=== PATIENT | male | born 1945 | race Hispanic/Latino ===

== ENCOUNTER → 2019-04-14 | Outpatient (CLI) | payer OTHER | END | disposition home or self-care (01) | LOC: SHCH 10:08 | PROVIDERS: ATTEND Internal Medicine Cardiovascular Disease | DX: I08.0 Rheumatic disorders of both mitral and aortic valves (principal); I11.9 Hypertensive heart disease without heart failure; I65.23 Occlusion and stenosis of bilateral carotid arteries; I25.10 Atherosclerotic heart disease of native coronary artery without angina pectoris | CPT/HCPCS: 93306; 93880 ==

== ENCOUNTER → 2020-04-10 | Outpatient (CLI) | payer OTHER | END | disposition home or self-care (01) | LOC: SHCH 10:00 | PROVIDERS: ATTEND Internal Medicine Cardiovascular Disease | DX: I08.0 Rheumatic disorders of both mitral and aortic valves (principal) | CPT/HCPCS: 93306 ==

== ENCOUNTER → 2023-09-19 | Outpatient (CLI) | payer OTHER | END | disposition home or self-care (01) | LOC: SHCH 12:45 | PROVIDERS: ATTEND Internal Medicine Cardiovascular Disease | DX: I08.0 Rheumatic disorders of both mitral and aortic valves (principal) | CPT/HCPCS: 93306 ==

== ENCOUNTER → 2023-10-14 | Outpatient (CLI) | payer OTHER | END | disposition home or self-care (01) | LOC: SHCH 12:28 | PROVIDERS: ATTEND Internal Medicine Cardiovascular Disease | DX: I65.23 Occlusion and stenosis of bilateral carotid arteries (principal); I35.0 Nonrheumatic aortic (valve) stenosis | CPT/HCPCS: 93880 ==

== ENCOUNTER 2023-11-20 06:17 | Day surgery (SDC) | payer OTHER ==
[2023-11-18 12:03] LABS: BASOPHILS % (AUTO) 0.8 % (0.0-5.0); EOSINOPHILS # (AUTO) 0.35 K/uL (0.00-0.70); EOSINOPHILS % (AUTO) 2.8 % (0.0-8.0); HEMATOCRIT 41.4 % (42-54); IMMATURE GRANULOCYTE ABSOLUTE 0.06 K/uL (0-1); LYMPHOCYTES # (AUTO) 1.6 K/uL (1.0-4.8); LYMPHOCYTES % (AUTO) 12.7 % (21.0-51.0); MEAN CORPUSCULAR HEMOGLOBIN 27.9 pg (27.0-33.0); MEAN CORPUSCULAR HGB CONC 32.9 g/dL (32.0-36.0); MONOCYTES # (AUTO) 0.9 K/uL (0.1-1.0); MONOCYTES % (AUTO) 7.1 % (3.0-13.0); NEUTROPHILS # (AUTO) 9.5 K/uL (1.8-7.7); NEUTROPHILS % (AUTO) 76.1 % (40.0-77.0); PLATELET COUNT (AUTO) 299 K/uL (130-400); RED BLOOD CELL COUNT(AUTO) 4.87 MIL/uL (4.50-6.20); RED CELL DISTRIBUTION WIDTH 13.2 % (11.0-15.5); WHITE BLOOD COUNT (AUTO) 12.5 K/uL (4.8-10.8)
[2023-11-18 12:19] LABS: INR 1.01 (0.85-1.15); PROTHROMBIN TIME 11.7 SEC (9.6-11.6)
[2023-11-18 12:21] LABS: PARTIAL THROMBOPLASTIN TIME 32.8 SEC (26.3-35.5)
[2023-11-18 12:24] LABS: APPEARANCE,URINE CLOUDY (CLEAR); BILIRUBIN,URINE NEGATIVE (NEGATIVE); COLOR,URINE LIGHT-YELLOW (YELLOW); GLUCOSE, URINE (UA) NEGATIVE (NEGATIVE); KETONES,URINE NEGATIVE (NEGATIVE); LEUKOCYTE ESTERASE ,URINE 500 Leu/uL (NEGATIVE); NITRATE,URINE NEGATIVE (NEGATIVE); OCCULT BLOOD,URINE SMALL (NEGATIVE); PROTEIN,URINE 20 mg/dL (NEGATIVE); UROBILINOGEN,URINE 0.2 mg/dL (0.2-1.0)
[2023-11-18 12:29] LABS: ADD UA MICROSCOPIC YES; CREATININE 1.3 mg/dL (0.5-1.5); POTASSIUM 4.2 mmol/L (3.5-5.1)
[2023-11-18 12:51] LABS: B-TYPE NATRIURETIC PEPTIDE 91 pg/mL (0-100)
[2023-11-18 12:57] LABS: BACTERIA,URINE FEW /HPF (None Seen); MUCUS,URINE RARE LPF (None Seen); SQUAMOUS EPITHELIAL CELL,UR RARE /HPF (0-2); WBC,URINE >100 /HPF (0-1)
[2023-11-18 13:03] VITALS: BP 153/83; PULSE 94; RESP 17
[2023-11-20] VITALS (11 sets, daily range): BP systolic 90–175; BP diastolic 46–83; PULSE 56–68; RESP 14–16
[~2023-11-20] VITALS: Ht 172.7 cm; Wt 90.2 kg
[~2023-11-20 06:17] MED LIST: AEC81 PO; ATOR40TA71 PO; CILO100T3 PO; CLOP75TA32 PO; LOSA50TA64 PO; METO-391 PO; METO-409 PO
[2023-11-20] MEDS: 0.9%NACL 1000ML 1,000 ML IV ONE (06:52)
[2023-11-20 07:03] LABS: CREATININE 1.2 mg/dL (0.5-1.5); POTASSIUM 3.5 mmol/L (3.5-5.1)
[2023-11-20] MEDS ORDERED: SODIUM BICARB 50MEQ 50ML VIAL 50 ML ONE (09:03)
[2023-11-20] MEDS ORDERED: IOHEXOL 350 MG/ML 100ML INFUS..BTL IV ONE (09:03)
[2023-11-20] MEDS ORDERED: MIDAZOLAM HCL 1 MG/ML 2ML VIAL ONE ×2 (09:03→09:43)
[2023-11-20] MEDS ORDERED: IOHEXOL-350 50ML VIAL IV ONE (09:03)
[2023-11-20] MEDS ORDERED: HEPARIN 10,000 UNIT/10ML (1,000 UNIT/ML) VIAL ONE (09:03)
[2023-11-20] MEDS ORDERED: LIDOCAINE HCL 400MG/20ML VIAL ONE (09:03)
[2023-11-20] MEDS ORDERED: MEPERIDINE-PF 25 MG/ML SYG ONE ×2 (09:03→09:43)
== END 2023-11-20 16:35 | disposition home or self-care (01) ==
LOC: DAH 06:17
PROVIDERS: ATTEND Internal Medicine Cardiovascular Disease
DX: I25.10 Atherosclerotic heart disease of native coronary artery without angina pectoris (principal); E78.5 Hyperlipidemia, unspecified; I10 Essential (primary) hypertension; I35.0 Nonrheumatic aortic (valve) stenosis; I73.9 Peripheral vascular disease, unspecified; I45.10 Unspecified right bundle-branch block; Z82.3 Family history of stroke; Z82.49 Family history of ischemic heart disease and other diseases of the circulatory system; Z88.0 Allergy status to penicillin; Z79.82 Long term (current) use of aspirin; Z79.899 Other long term (current) drug therapy; Z95.1 Presence of aortocoronary bypass graft; Z98.41 Cataract extraction status, right eye; Z98.42 Cataract extraction status, left eye
CPT/HCPCS: 80048 ×2; 83880; 85025; 85610; 85730; 87088; 81001; 36415 ×2; 71045; 93005; 93461; C1769 ×2; C1894 ×3; C1893; C1760; Q9965; J3490 ×2; J7030; J1644 ×2; J2250 ×2; J2175 ×2; Q9967; A4215; A4222; A4221; A4663; A4216; A4606; A4223 ×3; 99156; 99157

== ENCOUNTER → 2023-12-07 | Outpatient (CLI) | payer OTHER ==
[2023-12-07 12:18] LABS: CREATININE 1.4 mg/dL (0.5-1.5); POTASSIUM 4.1 mmol/L (3.5-5.1)
== END | disposition home or self-care (01) ==
LOC: LAB 09:52
PROVIDERS: ATTEND Internal Medicine Cardiovascular Disease
DX: I11.9 Hypertensive heart disease without heart failure (principal)
CPT/HCPCS: 36415; 80048

== ENCOUNTER → 2023-12-14 | Outpatient (CLI) | payer OTHER ==
[~2023-12-14] MED LIST changes: +IOHEXOL 350 MG/ML 100ML INFUS..BTL IV ONE
== END | disposition home or self-care (01) ==
LOC: RAH 10:26
PROVIDERS: ATTEND Internal Medicine Cardiovascular Disease
DX: I25.10 Atherosclerotic heart disease of native coronary artery without angina pectoris (principal); I51.7 Cardiomegaly; M47.814 Spondylosis without myelopathy or radiculopathy, thoracic region; N32.89 Other specified disorders of bladder; K56.41 Fecal impaction
CPT/HCPCS: 74174; 75574; Q9967

== ENCOUNTER → 2024-01-23 | Outpatient (CLI) | payer OTHER ==
[~2024-01-23] MED LIST changes: -IOHEXOL 350 MG/ML 100ML INFUS..BTL IV ONE
== END | disposition home or self-care (01) ==
LOC: SHCH 13:29
PROVIDERS: ATTEND Internal Medicine Cardiovascular Disease
DX: I11.9 Hypertensive heart disease without heart failure (principal); I25.3 Aneurysm of heart
CPT/HCPCS: 93306

== ENCOUNTER → 2024-10-27 | Outpatient (CLI) | payer OTHER ==
[~2024-10-27] MED LIST changes: -AEC81 PO; +ATOR40TA69 PO; -CILO100T3 PO; +CLOP-31 PO; -LOSA50TA64 PO; -METO-391 PO; +METO-408 PO; -METO-409 PO; +MULT-1367 PO; +OXYB5TAB20 PO; +PANT40TA54 PO; +POLY17PO52 PO
--- NOTE | 2024-10-27 10:49 | HMCIMG ---
US ABDOMINAL RUQ\E\LTD HISTORY: Nausea and vomiting COMPARISON: None TECHNIQUE: Right upper quadrant abdominal ultrasound study was performed. FINDINGS: Liver measures 14.5 cm. Pancreas is not well seen due to overlying bowel gas. Small pleural effusion is seen. Liver is echogenic consistent with liver parenchymal disease. No gallstone is seen. Common duct measures 5 mm. No evidence of gallbladder wall thickening is seen. Right kidney measures 8.1 x 4.6 x 2.9 cm. No hydronephrosis is seen of the right kidney. IMPRESSION: 1. No gallstones or ductal dilatation is seen. 2. No hydronephrosis is seen.
== END | disposition home or self-care (01) ==
LOC: RAH 10:00
PROVIDERS: ATTEND Internal Medicine Cardiovascular Disease
DX: K76.89 Other specified diseases of liver (principal); R11.2 Nausea with vomiting, unspecified
CPT/HCPCS: 76705